=== PATIENT | male | born 1995 | race Asian ===

== ENCOUNTER 2023-01-20 21:01 | Emergency (ER) | payer BC ==
[2023-01-20] MEDS ORDERED: methylPREDNISolone NA SUCC 125 MG/2 ML VIAL ONE (21:04)
[2023-01-20] MEDS ORDERED: SODIUM CHLORIDE 1,000 ML IV ONE (21:15)
[2023-01-20] MEDS ORDERED: methylPREDNISolone NA SUCC 125 MG/2 ML VIAL IVPUSH ONE (21:16)
[2023-01-20 21:30] VITALS: BMI 27.0
[2023-01-20 21:44] VITALS: RESP 17
[2023-01-20 21:53] VITALS: BP 129/84; PULSE 86
== END 2023-01-20 23:57 | disposition home or self-care (01) ==
LOC: FER 21:01
PROC: 3E033NZ Introduction of Analgesics, Hypnotics, Sedatives into Peripheral Vein, Percutaneous Approach (ICD-10-PCS; principal; 2023-01-20)
PROC: 3E033GC Introduction of Other Therapeutic Substance into Peripheral Vein, Percutaneous Approach (ICD-10-PCS; 2023-01-20)
PROC: 3E0337Z Introduction of Electrolytic and Water Balance Substance into Peripheral Vein, Percutaneous Approach (ICD-10-PCS; 2023-01-20)
DX: R09.89 Other specified symptoms and signs involving the circulatory and respiratory systems (principal); T78.3XXA Angioneurotic edema, initial encounter
CPT/HCPCS: 99284-25